=== PATIENT | female | born 1950 | race African-American/Black ===

== ENCOUNTER 2021-02-19 21:43 | Emergency (ER) | payer MEDICARE ==
[~2021-02-19] VITALS: Ht 170.2 cm; Wt 79.4 kg
[2021-02-19 21:45] VITALS: BP 178/79
[2021-02-19] MEDS ORDERED: TETRACAINE HCL 0.5% OPTH(EYE) SOLN 4ML LEFTEYE ONE (22:30)
[2021-02-19] MEDS ORDERED: FLUORESCEIN SOD OPTH TEST STRIP LEFTEYE ONE (22:30)
== END 2021-02-19 23:55 | disposition home or self-care (01) ==
LOC: ER 21:43
DX: H57.12 Ocular pain, left eye (principal); E78.5 Hyperlipidemia, unspecified; I10 Essential (primary) hypertension

== ENCOUNTER 2022-01-12 14:09 | Emergency (ER) | payer MEDICARE, MEDICAID ==
[~2022-01-12] VITALS: Ht 170.2 cm; Wt 81.6 kg
[2022-01-12 14:14] VITALS: BP 158/50
[2022-01-12] MEDS ORDERED: ACETAMINOPHEN 500 MG TAB PO ONE (15:45)
== END 2022-01-12 15:54 | disposition home or self-care (01) ==
LOC: ER 14:09
DX: B02.9 Zoster without complications (principal); E78.5 Hyperlipidemia, unspecified; I10 Essential (primary) hypertension

== ENCOUNTER 2022-05-19 15:15 | Emergency (ER) | payer BC, MEDICARE ==
[~2022-05-19] VITALS: Ht 170.2 cm; Wt 81.6 kg
[2022-05-19] MEDS: cloNIDine HCL 0.1 MG TAB PO ONE ×2 (16:12→17:12)
[2022-05-19 17:22] LABS: Basophils # (auto) 0.1 10 ^3/uL (0-0.2); Basophils % (auto) 1.7 % (0.0-2.0); Eosinophils # (auto) 0.1 10 ^3/uL (0-0.8); Eosinophils % (auto) 2.8 % (0.0-7.0); Hematocrit 40.3 % (36.0-46.0); Hemoglobin 12.9 g/dL (12.2-16.2); Lymphocytes # (auto) 1.4 10 ^3/uL (0.4-5.4); Lymphocytes % (auto) 34.7 % (10.0-50.0); Mean Corpuscular Hemoglobin 31.4 pg (28.0-32.0); Mean Corpuscular Hgb Conc. 32.1 g/dL (32.0-36.0); Mean Corpuscular Volume 97.9 fL (80.0-100.0); Monocytes # (auto) 0.3 10 ^3/uL (0-1.3); Monocytes % (auto) 6.8 % (0.0-12.0); Neutrophils # (auto) 2.3 10 ^3/uL (1.6-8.6); Nucleated Red Blood Cells % 0.2 %; Red Blood Cells 4.11 10^6/uL (4.0-5.20); Red Cell Distribution Width 13.7 % (11.8-14.3); White Blood Cell 4.2 10^3/uL (4.4-10.8)
[2022-05-19 17:31] LABS: Albumin 3.7 g/dL (3.4-5.0); Calcium 9.5 mg/dL (8.5-10.1); Potassium 4.6 mmol/L (3.5-5.1)
[2022-05-19 17:35] LABS: BUN/Creatinine Ratio 12.1; Bilirubin, Total 0.9 mg/dL (0.2-1.0)
[2022-05-19 19:59] VITALS: BP 192/75
== END 2022-05-19 20:56 | disposition home or self-care (01) ==
LOC: ER 15:15 → EDUNIT# 15:15 → EDBD 15:15 → ER 20:56
DX: I10 Essential (primary) hypertension (principal); R51.9 Headache, unspecified; E78.5 Hyperlipidemia, unspecified
CPT/HCPCS: 36415; 70450; 80053; 85025; 93005